=== PATIENT | male | born 1975 | race Caucasian/White ===

== ENCOUNTER 2017-06-23 12:58 | Emergency (ER) | payer SELFPAY ==
[~2017-06-23] VITALS: Ht 177.8 cm; Wt 68.2 kg
[~2017-06-23 12:58] MED LIST: NOCURR
[2017-06-23 14:59] VITALS: BP 128/78
== END 2017-06-23 15:32 | disposition home or self-care (01) ==
LOC: EMS 12:59
DX: L03.116 Cellulitis of left lower limb (principal); L40.9 Psoriasis, unspecified
CPT/HCPCS: 99283